=== PATIENT | male | born 1975 | race Caucasian/White ===

== ENCOUNTER 2017-03-27 10:58 | Emergency (ER) | payer OTHER ==
[~2017-03-27] VITALS: Ht 185.4 cm; Wt 107.7 kg
[2017-03-27 11:00] VITALS: TEMP 98.1
[2017-03-27] MEDS ORDERED: COZAAR100 MG PO (11:27)
[2017-03-27] MEDS ORDERED: NORVASC 5MG5 MG/TAB PO (11:27)
[2017-03-27 11:59] LABS: BASO % 0.5 % (0.0-2.0); EOS % 0.6 % (0-4.0); GRAN # 4.6 (1.4-6.5); GRAN % 73.1 % (42.2-75.2); HEMATOCRIT 44.8 % (42.0-52.0); HEMOGLOBIN 16.1 g/dl (13.5-18.0); LYMPH # 1.1 (1.2-3.4); LYMPH % 17.7 % (20.0-51.0); MEAN CELL VOLUME 97 fl (80.0-100.0); MEAN CORPUSCULAR HEMOGLOBIN 35 pg (27.0-31.0); MEAN CORPUSCULAR HGB CONC 36 g/dl (33.0-37.0); MEAN PLATELET VOLUME 12.3 fl (7.4-10.4); MONO # 0.5 (0.1-0.6); MONO % 7.3 % (1.7-9.3); PLATELET COUNT 94 K/mm3 (130-400); RED BLOOD COUNT 4.61 M/mm3 (4.20-5.60); WHITE BLOOD COUNT 6.3 K/mm3 (4.8-10.8)
[2017-03-27 12:19] LABS: ADJUSTED CALCIUM 9.5 mg/dL (8.4-10.2); ALANINE AMINOTRANSFERASE 220 U/L (21-72); ALKALINE PHOSPHATASE 385 U/L (50-136); ANION GAP 15 mmol/L (7-16); BILIRUBIN,TOTAL 4.2 mg/dL (0.0-1.0); BLOOD UREA NITROGEN 15 mg/dL (9-20); C-REACTIVE PROTEIN 1.6 mg/dL (0.0-0.9); CALCIUM 9.5 mg/dL (8.4-10.2); CARBON DIOXIDE 25 mmol/L (22-30); CHLORIDE 91 mmol/L (98-107); GLUCOSE 156 mg/dL (74-106); SODIUM 131 mmol/L (137-145); TOTAL PROTEIN 7.5 gm/dL (6.4-8.2)
[2017-03-27 12:27] LABS: AMYLASE 272 U/L (30-110)
[2017-03-27 12:28] LABS: B-TYPE NATRIURETIC PEPTIDE 254 pg/mL (0-125)
[2017-03-27 12:31] LABS: LIPASE 3553 U/L (23-300); POTASSIUM 2.6 mmol/L (3.4-5.0); TROPONIN-I < 0.012 ng/mL (0.000-0.034)
[2017-03-27 14:30] LABS: INR 1.1 (0.8-3.0); PROTHROMBIN TIME 12.2 SECONDS (9.7-12.8)
[2017-03-27] MEDS ORDERED: K-DUR20 MEQ PO (15:37)
[2017-03-27 16:30] VITALS: BP 104/90; PULSE 125
== END 2017-03-27 16:40 | disposition left against medical advice (07) ==
LOC: COL.ER 10:58
PROVIDERS: Nurse Practitioner
DX: K85.90 Acute pancreatitis without necrosis or infection, unspecified (principal); F10.20 Alcohol dependence, uncomplicated; I10 Essential (primary) hypertension; F17.210 Nicotine dependence, cigarettes, uncomplicated
CPT/HCPCS: J2560; J3480; J7030; Q9967